=== PATIENT | male | born 1955 | race African-American/Black ===

== ENCOUNTER 2019-04-21 10:52 | Day surgery (SDC) | payer OTHER ==
[2019-04-20 11:15] VITALS: BMI 27.8
[2019-04-21] MEDS ORDERED: HEPARIN NA (PORCINE) 5,000 UNITS/ML 1ML VIAL ONE (13:01)
[2019-04-21] MEDS ORDERED: PAPAVERINE HCL 30 MG/1 ML 10 ML VIAL NR ONE (13:01)
[2019-04-21] MEDS ORDERED: LIDOCAINE HCL 1%, 10 MG/ML (20ML VIAL) ONE ×2 (13:02→13:37)
--- NOTE | 2019-04-21 13:23 | HP ---
Satellite [facility] - Chief Complaint Chief Complaint: Renal failure History of Present Illness: 64 yo man with chronic kidney disease need dialysis access creation. History Source: Patient - Past Medical History Allergies/Adverse Reactions: Allergies Allergy/AdvReac Type Severity Reaction Status Date / Time No Known Allergies Allergy Verified 04/21/19 11:28 Cardiovascular: Yes: HTN Endocrine: Yes: Diabetes Mellitus - Current Medications Current Medications: Home Medications Medication Instructions Recorded Aspirin 81 mg PO DAILY 04/20/19 Atorvastatin Ca [Lipitor] 80 mg PO HS 04/20/19 Bumetanide 1 mg PO DAILY 04/20/19 Calcitriol [Rocaltrol -] 0.25 mcg PO DAILY 04/20/19 Ferric Citrate [Auryxia] 210 mg PO BID 04/20/19 Isosorbibe Dinit/Hydralazine 40 mg PO TID 04/20/19 [Bidil Tablet] Nebivolol HCl [Bystolic] 20 mg PO DAILY 04/20/19 Nifedipine [Procardia Xl] 60 mg PO DAILY 04/20/19 Sitagliptin Phosphate [Januvia] 25 mg PO DAILY 04/20/19 Tamsulosin HCl 0.4 mg PO HS 04/20/19 Satellite Physical Exam - Physical Examination Vital Signs: Vital Signs Period Temp Pulse Resp BP Sys/Dye Pulse Ox Last 24 Hr 98.1 F 64 18 144/77 99 General Appearance: Well Nourished, Well Developed, Severe Distress Lung: Clear to auscultation Heart: Regular rate & rhythm Abdomen: Soft Extremities: No edema Satellite Impression/Plan - Impression/Plan Impression: CKD stage 5 Operative Procedure: Creation AV fistula left arm Date to be Performed: 04/21/19
[2019-04-21] MEDS ORDERED: ceFAZolin SODIUM 1 GM VIAL IVPB ONE (13:44)
[2019-04-21] MEDS ORDERED: ceFAZolin SODIUM 1 GM VIAL ONE (13:44)
[2019-04-21] MEDS ORDERED: MIDAZOLAM HCL 2 MG/2 ML SINGLE DOSE VIAL ONE ×2 (13:45)
[2019-04-21] MEDS ORDERED: LIDOCAINE HCL 1%, 10 MG/ML (50 mL VIAL) IJ ONE (13:56)
--- NOTE | 2019-04-21 15:07 | OP ---
Operative Note - Note: Operative Date: 04/21/19 Pre-Operative Diagnosis: ERSD Operation: Creation AV fistula left arm Findings: Patent cephalic vein and radial artery Post-Operative Diagnosis: Same as Pre-op Surgeon: Sebas Najera Anesthesiologist/BOOKMAKER'S CLERK: Isai Rebolledo Anesthesia: Fractional Estimated Blood Loss (mls): 20
[2019-04-21] MEDS ORDERED: ACETAMINOPHEN WITH CODEINE 300MG/30MG TABLET PO PRN (15:08)
[2019-04-21 16:42] VITALS: TEMP 97.8
[2019-04-21 17:41] VITALS: BP 138/78; PULSE 68
--- NOTE | 2019-04-25 06:40 | OP ---
DATE OF OPERATION: 04/21/2019 SURGEON: Sebas Acosta MD PROCEDURE: Creation of arteriovenous fistula, left arm. PREOPERATIVE DIAGNOSIS: Renal failure. POSTOPERATIVE DIAGNOSIS: Renal failure. ANESTHESIA: Fractional. ANESTHESIOLOGIST: Isai Rebolledo MD OPERATIVE FINDINGS: The cephalic vein and radial artery were patent in the forearm. OPERATIVE PROCEDURE: Following routine patient identification with side and site verification, intravenous sedation was established. The left arm was prepped with ChloraPrep. Time-out was performed. Xylocaine 1% was infiltrated proximal to the wrist over the cephalic vein. It was exposed through a small incision. The vein was dissected free from the surrounding tissues using cautery for hemostasis. Side branches were ligated with silk ties and divided. The vein was ligated distally and incised. It was distended with heparin and papaverine solution. A No.5 feeding tube was passed proximally and met resistance in the mid forearm. A No. 3 Seferino catheter was used to dilate the vein in this area, and then, the No. 5 and No. 8 feeding tubes were passed proximally without resistance. The vein was filled with heparin solution. The radial artery was then exposed through an adjacent incision and secured with vessel loops. Small side branches were ligated and divided. The vein was freed and passed through a short subcutaneous tunnel to lie next to the artery. The artery was occluded with vessel loops and opened on exposed surface with a 6-mm arteriotomy. The end of the vein was spatulated, and anastomosed to the side of the artery with running sutures of 6-0 Prolene. Prior to the completion of the suture line, The artery was allowed to back-bleed and flush, and the vein was flushed with heparin solution. Suture line was completed, and all vessels were released. There was good flow through the anastomosis with a palpable thrill in the proximal vein. Bleeding from the suture line was controlled with Surgicel. When hemostasis was achieved, the wound was closed with interrupted suture of 3-0 Vicryl and skin ana. Sterile dressings were applied, and the patient was taken to the recovery room in stable condition. SEBAS ACOSTA M.D. [id number]
== END 2019-04-21 17:10 | disposition home or self-care (01) ==
LOC: JASU-SURG 10:52
PROVIDERS: ATTEND Surgery
PROC: 031C0ZF Bypass Left Radial Artery to Lower Arm Vein, Open Approach (ICD-10-PCS; principal; 2019-04-21 12:30)
DX: I12.0 Hypertensive chronic kidney disease with stage 5 chronic kidney disease or end stage renal disease (principal); E11.22 Type 2 diabetes mellitus with diabetic chronic kidney disease; N18.6 End stage renal disease; Z99.2 Dependence on renal dialysis
CPT/HCPCS: 94760; J1644

== ENCOUNTER 2019-08-23 09:48 | Day surgery (SDC) | payer OTHER ==
[2019-08-23 10:16] VITALS: TEMP 98.9
[2019-08-23] MEDS ORDERED: PROPOFOL 20 ML ONE ×2 (10:24)
[2019-08-23 10:25] VITALS: BMI 29.5
[2019-08-23 11:58] VITALS: BP 168/76; PULSE 63
--- NOTE | 2019-08-25 14:14 | PATH ---
Surgical Pathology Report Patient Name: JEFRY VALLADARES [facility]. Rec. #: [id number] /Age/Gender: 1955 (Age: 64) / M Account: [id number] Location: [facility] Taken: 08/23/2019 Received: 08/23/2019 Reported: 08/25/2019 Physicians: Day Mckeon M.D. Specimen(s) Received ERYTHEMATOUS PATCH RECTUM Clinical History Screening Postoperative diagnosis: Hemorrhoids, erythematous patch Final Diagnosis RECTUM, ERYTHEMATOUS PATCH, BIOPSY: MODERATE CHRONIC PROCTITIS, MILDLY ACTIVE. (SEE NOTE). Note: These findings may be compatible with inflammatory bowel disease in conjunction with appropriate clinical and endoscopic findings. Clinical correlation is suggested. Electronically Signed Treasure Agarwal M.D. Gross Description Received in formalin, labeled "erythematous patch rectum" is a yuan, irregular portion of soft tissue measuring 0.4 cm. in greatest dimension. The specimen is submitted in toto in one cassette. 08/24/2019 [facility]08/24/2019
== END 2019-08-23 12:00 | disposition home or self-care (01) ==
LOC: FASU-ENDO 09:48
PROVIDERS: ATTEND Internal Medicine Gastroenterology
PROC: 0DBP8ZX Excision of Rectum, Via Natural or Artificial Opening Endoscopic, Diagnostic (ICD-10-PCS; principal; 2019-08-23 11:08)
DX: Z12.11 Encounter for screening for malignant neoplasm of colon (principal); K62.89 Other specified diseases of anus and rectum; K64.1 Second degree hemorrhoids
CPT/HCPCS: 88305-TC